=== PATIENT | male | born 1995 | race Caucasian/White ===

== ENCOUNTER 2016-12-04 15:50 | Emergency (ER) | payer SELFPAY ==
[~2016-12-04] VITALS: Ht 180.3 cm; Wt 67.9 kg
[~2016-12-04 15:50] MED LIST: ATARAX,VISTARIL50 MG PO; NAPROSYN500 MG PO
[2016-12-04] MEDS ORDERED: MOTRIN800 MG PO (17:39)
[2016-12-04 17:58] VITALS: BP 137/83
== END 2016-12-04 18:09 | disposition home or self-care (01) ==
LOC: EME 15:50
DX: S99.922A Unspecified injury of left foot, initial encounter (principal); M79.672 Pain in left foot; X58.XXXA Exposure to other specified factors, initial encounter; Y92.838 Other recreation area as the place of occurrence of the external cause; F17.200 Nicotine dependence, unspecified, uncomplicated
CPT/HCPCS: 73630; 99281; 99284

== ENCOUNTER 2017-09-30 19:35 | Emergency (ER) | payer SELFPAY ==
[~2017-09-30] VITALS: Ht 182.9 cm; Wt 67.3 kg
[~2017-09-30 19:35] MED LIST changes: +MOTRIN800 MG PO
[2017-09-30] MEDS ORDERED: MOTRIN800 MG PO (20:48)
[2017-09-30 21:19] VITALS: BP 134/68
== END 2017-09-30 21:19 | disposition home or self-care (01) ==
LOC: EME 19:35
DX: M25.572 Pain in left ankle and joints of left foot (principal); F17.200 Nicotine dependence, unspecified, uncomplicated
CPT/HCPCS: 73610; 99281; 99284